=== PATIENT | female | born 1945 | race Caucasian/White ===

== ENCOUNTER 2017-10-05 13:01 | Emergency (ER) | payer MEDICARE ==
[2017-10-05 13:15] VITALS: BP 201/98; TEMP 98.3
[2017-10-05] MEDS ORDERED: SULFA/TRIMETH 800/160 (DS) TAB 1 EA TAB PO ONE (13:21)
[2017-10-05] MEDS ORDERED: TETANUS,DIPHTHERIA,PERTUSSIS 1 EA SYG IM ONE (13:21)
--- NOTE | 2017-10-05 13:25 | ED.PDOC ---
History of Present Illness - General Chief Complaint: Laceration Stated Complaint: laceration Time Seen by Provider: 10/05/17 13:21 Source: patient, family Exam Limitations: no limitations - History of Present Illness Initial Comments: the patient is a 72-year-old female presenting to the emergency room secondary to a one-inch laceration to the left frontotemporal area. The patient sustained this while moving a trash can and had a piece of metal sticking out. Estimated blood loss prior to arrival probably 5-10 cc. No evidence of any deep head injury or concussion. No other injuries. The patient does not think she is up-to-date on her tetanus. Timing/Duration: 1/2 hour Severity: moderate Improving Factors: nothing Worsening Factors: nothing Associated Symptoms: denies symptoms Allergies/Adverse Reactions: Allergies Aspirin Allergy (Verified 10/05/17 13:16) Ciprofloxacin [From Cipro] Allergy (Verified 10/05/17 13:16) Naproxen Allergy (Verified 10/05/17 13:16) Nitrofurantoin [From Macrodantin] Allergy (Verified 10/05/17 13:16) Home Medications: Ambulatory Orders NK [NK] 10/05/17 Review of Systems - Review of Systems Constitutional: States: no symptoms reported EENTM: States: no symptoms reported Respiratory: States: no symptoms reported Cardiology: States: no symptoms reported Gastrointestinal/Abdominal: States: no symptoms reported Genitourinary: States: no symptoms reported Musculoskeletal: States: no symptoms reported Skin: States: see HPI Neurological: States: no symptoms reported Endocrine: States: no symptoms reported All other Systems: No Change from Baseline Past Medical History (General) - Patient Medical History Hx Dementia: No Hx Asthma: No Hx Cardiac Disorders: No Hx Congestive Heart Failure: No Hx Hypertension: No Hx Thyroid Disease: No Hx Diabetes: No Hx Renal Disease: No Hx Cancer: No Hx of HIV: No Surgical History: no surgical history - Vaccination History Hx Tetanus, Diphtheria Vaccination: No Hx Influenza Vaccination: No Hx Pneumococcal Vaccination: No - Social History Hx Tobacco Use: No Hx Alcohol Use: No Hx Substance Use: No Hx Substance Use Treatment: No Hx Depression: No Family Medical History - Family History Mother Family History: Unknown Physical Exam - Physical Exam General Appearance: Alert, Comfortable, No apparent distress Eye Exam: bilateral normal Ears, Nose, Throat: hearing grossly normal, normal ENT inspection Neck: non-tender, supple Respiratory: no respiratory distress, no accessory muscle use Cardiovascular/Chest: normal peripheral pulses, no edema Peripheral Pulses: radial,right: 2+, radial,left: 2+ Rectal Exam: deferred Extremity: normal range of motion, non-tender, no pedal edema, normal capillary refill 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 Comments: Vital Signs - 24 hr 10/05/17 13:04 Temperature 98.3 F Pulse Rate [ 89 pulse ox] Respiratory 20 Rate Blood Pressure 201/98 [Left Arm] O2 Sat by Pulse 93 L Oximetry Progress - Progress Progress: 10/05/17 13:24 the patient is a 72-year-old female presenting to the emergency room secondary to a 1 inch laceration to the left scalp anteriorly. Assessment of blood loss in total is approximately 10 cc. Risk and benefits of repair were explained prior. She agrees to proceed. 100 cc of sterile saline were used for irrigation. Hydrogen peroxide additionally was used for cleaning. The wound actually looks clean initially. 2 andrey were used for reapproximation. She tolerated the procedure well. The patient was given 1 dose of Bactrim here as well as a tetanus shot. [place] need to come out towards the end of this week. ER warnings were given for any acute worsening. Departure - Departure Clinical Impression: Accidental laceration Disposition: Discharge to Home or Self Care Condition: Fair Departure Forms: ED Discharge - Pt. Copy, Patient Portal Self Enrollment Instructions: DI for Laceration Repair, DI for Laceration Repair of the Scalp Diet: regular diet Activity: increase activity as tolerated Referrals: Efrain Isidro MD [Primary Care Provider] - 1-5 Days Home Medications: Ambulatory Orders NK [NK] 10/05/17 Additional Instructions: the patient is a 72-year-old female presenting to the emergency room secondary to a 1 inch laceration to the left scalp anteriorly. Assessment of blood loss in total is approximately 10 cc. Risk and benefits of repair were explained prior. She agrees to proceed. 100 cc of sterile saline were used for irrigation. Hydrogen peroxide additionally was used for cleaning. The wound actually looks clean initially. 2 andrey were used for reapproximation. She tolerated the procedure well. The patient was given 1 dose of Bactrim here as well as a tetanus shot. [place] need to come out towards the end of this week. ER warnings were given for any acute worsening.
[2017-10-05 13:51] VITALS: O2SAT 96
== END 2017-10-05 13:51 | disposition home or self-care (01) ==
LOC: ER 13:01
DX: S01.01XA Laceration without foreign body of scalp, initial encounter (principal); Z23 Encounter for immunization; W26.9XXA Contact with unspecified sharp object(s), initial encounter; Y92.9 Unspecified place or not applicable

== ENCOUNTER 2020-08-01 17:25 | Emergency (ER) | payer MEDICARE ==
[2020-08-01 17:36] VITALS: TEMP 98.3
[2020-08-01] MEDS ORDERED: SULFA/TRIMETH 800/160 (DS) TAB 1 EA TAB PO ONE (17:49)
[2020-08-01] MEDS ORDERED: NEOMYCIN-BACITRACIN-POLYMYXIN 0.9 GM UD TOP ONE (17:50)
--- NOTE | 2020-08-01 17:52 | ED.PDOC ---
History of Present Illness - General Chief Complaint: Laceration Stated Complaint: laceration to right hand Time Seen by Provider: 08/01/20 17:33 Source: patient Exam Limitations: no limitations - History of Present Illness Initial Comments: The patient is a 74-year-old female presented emergency room after having cut the webbing between the first and second digit of the right hand with a v belt finisher. Laceration is 7/8 of an inch long. No evidence of any injury to significant nerves or tendons. She is neurovascularly intact. No other injuries. She did wash it out with water at home before coming out. Timing/Duration: 1/2 hour Severity: mild Improving Factors: nothing Worsening Factors: nothing Associated Symptoms: denies symptoms Allergies/Adverse Reactions: Allergies Aspirin Allergy (Verified 10/05/17 13:16) Ciprofloxacin [From Cipro] Allergy (Verified 10/05/17 13:16) Naproxen Allergy (Verified 10/05/17 13:16) Nitrofurantoin [From Macrodantin] Allergy (Verified 10/05/17 13:16) Home Medications: Ambulatory Orders Sulfa/Trimeth 800/160 (Ds) Tab [Bactrim DS Tab] 1 ea PO BID #5 tab 08/01/20 Review of Systems - Review of Systems Constitutional: States: no symptoms reported EENTM: States: no symptoms reported Respiratory: States: no symptoms reported Cardiology: States: no symptoms reported Gastrointestinal/Abdominal: States: no symptoms reported Genitourinary: States: no symptoms reported Musculoskeletal: States: no symptoms reported Skin: States: see HPI Neurological: States: no symptoms reported Endocrine: States: no symptoms reported All other Systems: No Change from Baseline Past Medical History (General) - Patient Medical History Hx Dementia: No Hx Asthma: No Hx Cardiac Disorders: No Hx Congestive Heart Failure: No Hx Hypertension: No Hx Thyroid Disease: No Hx Diabetes: No Hx Renal Disease: No Hx Cancer: No Hx of HIV: No Surgical History: noncontributory - Vaccination History Hx Tetanus, Diphtheria Vaccination: Yes - 2017 Hx Influenza Vaccination: No Hx Pneumococcal Vaccination: No - Social History Hx Tobacco Use: Yes Hx Alcohol Use: No Hx Substance Use: No Hx Substance Use Treatment: No Hx Depression: No Family Medical History - Family History Mother Family History: Unknown Physical Exam - Physical Exam General Appearance: Alert, Comfortable, No apparent distress Eye Exam: bilateral normal Ears, Nose, Throat: hearing grossly normal Neck: full range of motion Respiratory: no respiratory distress, no accessory muscle use Cardiovascular/Chest: normal peripheral pulses Peripheral Pulses: radial,right: 2+, radial,left: 2+ Rectal Exam: deferred Extremity: normal range of motion, no pedal edema, normal capillary refill 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 Comments: Vital Signs - 24 hr 08/01/20 17:33 Temperature 98.3 F Pulse Rate [ 78 Left Brachial] Respiratory 20 Rate Blood Pressure 195/113 [Left Arm] O2 Sat by Pulse 98 Oximetry Progress - Progress Progress: 08/01/20 17:50 The patient is a 74-year-old female presented emergency room secondary to a 7/8 inch laceration to the webbing of her right hand between the first and second digits. Risk and benefits of repair were explained and the patient did agree to proceed. The wound was irrigated with water for 5 minutes and then cleaned with hydrogen peroxide. Lidocaine without epinephrine x2 cc was used as a local anesthetic. 3 simple sutures of 4-0 Ethilon were used for reapproximation. Estimated blood loss less than 3 cc. Patient tolerated this well. Patient is neurovascularly intact at this time. The patient was given a dose of Bactrim prophylactically and will be placed on this prophylactically daily for the next 5 days. Monitor for any evidence of infection. Keep covered with Neosporin and a Band-Aid during the day. Wash twice daily with an antibacterial soap and water. Sutures need to come out in about 10 days. ER warnings are given for any significant worsening. [email or web address] [email or web address] [id number] Departure - Departure Clinical Impression: Laceration Disposition: Discharge to Home or Self Care Condition: Fair Departure Forms: ED Discharge - Pt. Copy, Patient Portal Self Enrollment Instructions: DI for Laceration Repair, Wound Care (DC) Diet: regular diet Activity: increase activity as tolerated Referrals: Efrain Isidro MD [Primary Care Provider] - 1-2 Weeks Prescriptions: Sulfa/Trimeth 800/160 (Ds) Tab [Bactrim DS Tab] 1 ea PO BID #5 tab Home Medications: Ambulatory Orders Sulfa/Trimeth 800/160 (Ds) Tab [Bactrim DS Tab] 1 ea PO BID #5 tab 08/01/20 Additional Instructions: The patient is a 74-year-old female presented emergency room secondary to a 7/8 inch laceration to the webbing of her right hand between the first and second digits. Risk and benefits of repair were explained and the patient did agree to proceed. The wound was irrigated with water for 5 minutes and then cleaned with hydrogen peroxide. Lidocaine without epinephrine x2 cc was used as a local anesthetic. 3 simple sutures of 4-0 Ethilon were used for reapproximation. Estimated blood loss less than 3 cc. Patient tolerated this well. Patient is neurovascularly intact at this time. The patient was given a dose of Bactrim prophylactically and will be placed on this prophylactically daily for the next 5 days. Monitor for any evidence of infection. Keep covered with Neosporin and a Band-Aid during the day. Wash twice daily with an antibacterial soap and water. Sut[place] need to come out in about 10 days. ER warnings are given for any significant worsening.
[2020-08-01 18:03] VITALS: BP 174/98; O2SAT 99
== END 2020-08-01 18:03 | disposition home or self-care (01) ==
LOC: ER 17:25
DX: S61.411A Laceration without foreign body of right hand, initial encounter (principal); W29.8XXA Contact with other powered hand tools and household machinery, initial encounter; Z87.891 Personal history of nicotine dependence; Z88.6 Allergy status to analgesic agent; Z88.1 Allergy status to other antibiotic agents; Z88.8 Allergy status to other drugs, medicaments and biological substances; Y92.9 Unspecified place or not applicable